=== PATIENT | female | born 2000 | race Caucasian/White ===

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

== ENCOUNTER 2023-06-13 22:35 | Emergency (ER) | payer BC, SELFPAY ==
[2023-06-13 22:35] VITALS: BP 163/120; PULSE 144; RESP 26; TEMP 36.2; O2SAT 98; BMI 19.3
--- NOTE | 2023-06-13 23:17 | ED.VIS.GI ---
HPI HPI - GI History of Present Illness Chief Complaint: Abd Pain Informant: patient Narrative Narrative: Patient is a 22-year-old female with reported history of cannabis hyperemesis syndrome and GERD presenting with worsening abdominal pain, nausea and vomiting. She states that started approximately 2 hours prior to arrival. She reports that her umbilical area is her area of pain. States it feels like her prior cannabis hyperemesis syndrome. She notes that she had stopped using marijuana products but had started again. Denies any blood in her vomit. Denies any change in bowel habits. Not take anything for symptoms prior to arrival. Notes that heat to her abdomen helps her symptoms. Denies any fever or chills. States she is not concerned for . Is not sure her last menstrual cycle was. States she does not get regular menstrual cycles. No other complaints or concerns at this time. Believes at some point she saw a GI doctor but cannot recall. PFSH PFSH Home Medications ondansetron 4 mg disintegrating tablet 4 mg PO Q6H PRN nausea and vomiting #20 tabs 06/14/23 [Rx Last Taken Unknown] Allergy/AdvReac Type Severity Reaction Status Date / Time No Known Allergies Allergy Verified 06/05/20 22:16 Social History Smoking Status: Never smoker ROS ROS ED Constitutional Constitutional ED: Denies chills or fever(s) Respiratory/Chest Respiratory/Chest: Denies cough Gastrointestinal Gastrointestinal: Reports abdominal pain, nausea and vomiting; Denies constipation, diarrhea or melena Genitourinary Genitourinary ED: Denies dysuria or hematuria Musculoskeletal Musculoskeletal: Denies arthralgias or myalgias Integumentary Denies rash Neurologic Neurologic: Denies headache(s) EXAM Physical Exam Const Vital Signs: 06/13/23 22:35 06/14/23 01:03 06/14/23 01:50 Temperature 97.2 F L 98 F Temperature Source Temporal Pulse Rate 144 H 81 71 Respiratory Rate 26 H 17 18 Blood Pressure 163/120 H 113/78 112/74 Blood Pressure Mean 134 89 86 Pulse Ox 98 99 98 Oxygen Delivery Method Room Air Positive well nourished and well developed General Appearance ED: well developed; Negative for pallor HEENT Reports moist mucous membranes Eyes PERRL and EOMs intact bilaterally General Eye ED: Negative for scleral icterus Neck supple Resp normal respiratory effort and clear to auscultation bilaterally Cardio regular rate, regular rhythm and no murmurs GI non-distended GI Narrative: Scaphoid abdomen Auscultation: normoactive bowel sounds Palpation: soft and tender epigastric; Negative for guarding, rigid, pulsatile mass or rebound tenderness present Back/Spine no CVA tenderness Extremity full ROM Neuro Sensorium / Orientation: alert, oriented to person, oriented to place and oriented to time Motor Exam: Negative for general weakness Psych mental status grossly normal and thought process normal Skin General Skin Exam: Negative for jaundice or pallor MDM MDM MDM Narrative Medical decision making narrative: Patient is evaluated for abdominal pain in the setting of reported cannabis hyperemesis syndrome. She has not been here in a couple years and has never presented for that complaint here so we will obtain some basic labs including CBC, CMP and lipase as well as urinalysis and serum hCG. Will give IV fluids and IV Haldol for symptoms and reevaluate. Differential includes gastritis, cannabis hyperemesis syndrome, GERD, peptic ulcer disease, pancreatitis Patient's lab work largely unremarkable. Lab work not consistent with leukocytosis, acute pancreatitis or an acute gallbladder/biliary pathology. Urine is negative. Patient is improvement of symptoms with IV fluids and Haldol. Vital signs also normalized. Patient be discharged home with a prescription for Zofran, encouraged to abstain from any THC containing products and is given outpatient GI referral. Given return precautions. Discharged home in stable and improved condition. Is able to drink water in the ER and tolerated. Lab Data Attestation: I reviewed the patient's lab results. Labs: Laboratory Results - last 24 hr 06/13/23 23:40 WBC 6.9 RBC 4.94 Hgb 14.9 Hct 42.9 MCV 86.8 MCH 30.2 MCHC 34.7 RDW Std Deviation 39.7 RDW Coeff of Ольга 12.5 Plt Count 316 MPV 8.7 Immature Gran % (Auto) 0.400 Neut % (Auto) 79.5 H Lymph % (Auto) 15.9 L [place] % (Auto) 3.9 Eos % (Auto) 0.0 Baso % (Auto) 0.3 Absolute Neuts (auto) 5.5 Absolute Lymphs (auto) 1.09 Nucleated RBC % 0 Sodium 140 Potassium 3.7 Chloride 111 H Carbon Dioxide 20.0 L Anion Gap 9 BUN 8 Creatinine 0.83 Estim Creat Clear Calc 92.13 Est GFR (MDRD) Af Amer 111 Est GFR (MDRD) Non-Af 92 BUN/Creatinine Ratio 9.7 L Glucose 164 H Calcium 9.8 Total Bilirubin 1.20 H AST 17 ALT 19 Alkaline Phosphatase 56 Total Protein 7.8 Albumin 4.3 Globulin 3.5 Albumin/Globulin Ratio 1.2 Lipase 71 Serum , Qual NEGATIVE Discharge Plan Triage Chief Complaint: Abd Pain ED Provider: Shelli Ley Dx/Rx/DC Orders Clinical Impression: Cannabis hyperemesis syndrome concurrent with and due to cannabis abuse, Nausea & vomiting Instructions: Cannabinoid Hyperemesis Syndrome, ED Vomiting (Adult) Prescriptions: New ondansetron 4 mg tablet,disintegrating 4 mg PO Q6H PRN (Reason: nausea and vomiting) Qty: 20 0RF Primary Care Provider: Care Physician,No Primary Referrals: Friend,Marcelo, DO [Med Staff - Active Staff] - As soon as possible NOT,DEFINED [Non-Staff] - Disposition Disposition: Home, Self Care Discharge Date/Time: 06/14/23 01:50
[2023-06-13] MEDS: 0.9% Normal Saline (1000mL) 1,000 ML 1000 ML IV (23:50)
[2023-06-13] MEDS: Haloperidol Lactate 5 MG/ML Vial 1 MG IV (23:50)
[2023-06-13 23:55] LABS: Absolute Lymphocyte Count 1.09 X10^3/uL (0.83-4.51); Absolute Neutrophil Count 5.5 X10^3/uL (2.0-7.7); Basophil# 0.02 X10^3/uL; Basophil% 0.3 % (0-1); Hematocrit 42.9 % (37-47); Hemoglobin 14.9 g/dL (12.0-15.0); Lymphocyte # 1.09 X10^3/ul (0.83-4.51); Lymphocyte % 15.9 % (19-41); Mean Corp Hgb Conc 34.7 g/dL (32-36); Mean Corpuscular Hgb 30.2 pg (27.0-32.0); Mean Corpuscular Volume 86.8 fL (81-99); Mean Platelet Vol. 8.7 fl (6.2-12.0); Monocyte# 0.27 X10^3/uL; Monocyte% 3.9 % (0-10); NRBC Flagged by Analyzer 0 % (0-5); Neutrophil # 5.46 X10^3/uL (2.7-7.7); Neutrophil % 79.5 % (47-70); Platelet Count 316 K/mm3 (150-450); RBC Distribution Width CV 12.5 % (11.6-14.6); RBC Distribution Width SD 39.7 fl (35.1-43.9); Red Blood Count 4.94 M/mm3 (4.2-5.4); White Blood Count 6.9 K/mm3 (4.4-11.0)
[2023-06-14 00:08] LABS: Internal QC Validated? YES +Cl - CLEAR BKGD; Pregnancy, Serum, hCG Quali. NEGATIVE Negative
[2023-06-14 00:15] LABS: ALB/GLOB Ratio 1.2 RATIO (0.9-2.4); AST(SGOT) 17 U/L (15-37); Alanine Aminotransfer ALT/SGPT 19 U/L (13-56); Albumin, Serum 4.3 g/dL (3.2-5.0); Alkaline Phosphatase 56 U/L (45-117); Anion Gap 9 (5-15); BUN 8 mg/dL (7-18); BUN/Creat Ratio 9.7 RATIO (10-20); Calcium,Total 9.8 mg/dL (8.5-10.1); Chloride 111 mmol/L (98-107); Creatinine, Serum 0.83 mg/dL (0.55-1.02); EST Glomerular Filtration Rate 92 mL/min (>60); Est Glom Filt Rate - Afr Amer 111 mL/min (>60); Estimated Creatinine Clearance 92.13 ml/min; Globulin 3.5 g/dL (2.2-4.2); Glucose 164 mg/dL (74-106); Lipase 71 U/L (13-75); Potassium 3.7 mmol/L (3.5-5.1); Protein, Total 7.8 g/dL (6.4-8.2); Sodium Level 140 mmol/L (136-145)
[2023-06-14 01:03] VITALS: BP 113/78; PULSE 81; RESP 17; O2SAT 99
[2023-06-14 01:50] VITALS: BP 112/74; PULSE 71; RESP 18; TEMP 36.6; O2SAT 98
== END 2023-06-14 01:50 | disposition home or self-care (01) ==
PROVIDERS: Emergency Provider Emergency Medicine; Visit Provider Emergency Medicine
DX: F12.10 Cannabis abuse, uncomplicated (principal); R11.2 Nausea with vomiting, unspecified
CPT/HCPCS: 80053; 83690; 84703; 85025; 99282; A4216